=== PATIENT | female | born 1955 | race Caucasian/White ===

== ENCOUNTER → 2021-03-15 | Outpatient (CLI) | payer MEDICARE ==
--- NOTE | 2021-03-15 09:13 | CT ---
EXAMINATION TYPE: CT brain wo con DATE OF EXAM: 03/15/2021 COMPARISON: None HISTORY: 65-year-old female Headache, weakness and abnormal gait TECHNIQUE: Examination was done in axial plane without intravenous contrast. Coronal and sagittal r econstructions performed. CT DLP: 1323.9 mGycm Automated exposure control for dose reduction was used. FINDINGS: There is no evidence of acute intracranial hemorrhage, acute ischemic changes, mass, mass-effect, or extra-axial fluid collection. There is no effacement of cerebral sulci or basal subarachnoid cister ns. There is no hydrocephalus. There is no midline shift. López-white matter distinction is preserv ed. Mild atherosclerotic calcifications within the carotid siphons. Mild bifrontal cerebral cortical volu me loss. Paranasal sinuses and mastoid air cells well pneumatized. Rightward nasal septal deviation. Orbits an d globes are intact. IMPRESSION: Mild bifrontal cerebral atrophy. No acute intracranial abnormality seen.
== END | disposition home or self-care (01) ==
LOC: RADCTMAIN 06:32
PROVIDERS: ATTEND Internal Medicine
DX: G31.9 Degenerative disease of nervous system, unspecified (principal)
CPT/HCPCS: 70450

== ENCOUNTER → 2023-07-25 | Outpatient (CLI) | payer MEDICARE ==
--- NOTE | 2023-07-26 18:51 | MM ---
Reason for Exam: Screening (asymptomatic). Last mammogram was performed 5 year(s) and 1 month(s) ago. Patient History: Menarche at age 10. First Full-Term at age 27. Postmenopausal. Estrogen for 8 years from age 48 until age 56. Progesterone for 8 years from age 48 until age 56. 1991, Bilateral Implants. Risk Values: Analia 5 year model risk: 2.1%. NCI Lifetime model risk: 6.7%. Prior Study Comparison: 03/07/2011 Bilateral Diagnostic Mammogram, [facility]. 01/17/2015 Bilateral Diagnostic Mammogram, [facility]. 07/10/2018 Bilateral Screening Mammogram, [facility]. Tissue Density: There are scattered fibroglandular densities. Findings: Analyzed By CAD. There are calcified prepectoral implants on both sides. Chronic bilateral nodularity. There is no suspicious group of microcalcifications or new suspicious mass in either breast. Overall Assessment: Benign, BI-RAD 2 Management: Screening Mammogram of both breasts in 1 year. . Patient should continue monthly self-breast exams. A clinical breast exam by your physician is recommended on an annual basis. This exam should not preclude additional follow-up of suspicious palpable abnormalities. Note on Analia scores and lifetime risk: 1. A Analia score greater than 3% is considered moderate risk. If this is the case, consider specialist referral to assess eligibility for a risk reducing agent. 2. If overall lifetime risk for the development of breast cancer is 20% or higher, the patient may qualify for future screening with alternating mammogram and breast MRI. Electronically signed and approved by: Kwame Garcia M.D. Radiologist
== END | disposition home or self-care (01) ==
LOC: RADMAMWWP 12:37
PROVIDERS: ATTEND Internal Medicine Geriatric Medicine
DX: Z12.31 Encounter for screening mammogram for malignant neoplasm of breast (principal); Z78.0 Asymptomatic menopausal state
CPT/HCPCS: 77063; 77067

== ENCOUNTER → 2025-01-29 | Outpatient (CLI) | payer MEDICARE ==
--- NOTE | 2025-01-29 16:18 | BD ---
EXAMINATION TYPE: Axial Bone Density DATE OF EXAM: 01/29/2025 CLINICAL HISTORY: 69 years old Female. ICD-10 CODE: M81.0 MENOPAUSAL , Additional History: Height: 60.58 Weight: 157.6 FRAX RISK QUESTIONS: Alcohol (3 or more units per day): no Family History (Parent hip fracture): no Glucocorticoids (More than 3mos): no (Ex: prednisone, prednisolone, methylprednisolone, dexamethasone, and hydrocortisone). History of Fracture in Adulthood: ankle Secondary Osteoporosis: 1. Type 1 Diabetes: no 2. Hyperthyroidism: no 3. Menopause before 45: no 4. Malnutrition: no 5. Chronic liver disease: no Rheumatoid Arthritis: no Current Tobacco Use: no RISK FACTORS HISTORY OF: Hip Fracture (Right/Left): no Spine Fracture: no History of Wrist Fracture: lt When: teenager Surgery to Spine/Hip(right/left)/Wrist (right/left): no MEDICATIONS: Thyroid Medications: Synthroid How Long: past 30 years Osteoporosis Medications: no EXAM MEASUREMENTS: Bone mineral densitometry was performed using the [employer] System. Bone mineral density as measured about the Lumbar spine is: ----- L1-L4(G/cm2): 0.845 T Score Values are as follows: ----- L1: -3.0 ----- L2: -3.1 ----- L3: -2.2 ----- L4: -2.9 ----- L1-L4: -2.8 Z Score Values are as follows: ----- L1: -1.6 ----- L2: -1.6 ----- L3: -0.8 ----- L4: -1.5 ----- L1-L4: -1.3 Bone mineral density has: decreased -1.6 % since study of: 07/10/2018 Bone mineral density about the R hip (g/cm2): 0.711 Bone mineral density about the L hip (g/cm2): 0.661 T Score values are as follows: -----R Neck: -2.6 -----L Neck: -3.1 -----R Total: -2.4 -----L Total: -2.8 Z Score values are as follows: -----R Neck: -1.0 -----L Neck: -1.6 -----R Total: -1.1 -----L Total: -1.5 Bone mineral density has: decreased -7.4 % since study of: 07/10/2018 FRAX%s: The graph provided illustrates a 28.7% chance for a major osteoporotic fx and a 9.7% chance f or the hips probability for fx in 10 years time. IMPRESSION: Osteoporosis (T Score less than -2.5). There is increased fracture risk and therapy is usually indicated based on age. Re-Screen 1-2 years. NOTE: T-SCORE=SD OF THE YOUNG ADULT MEAN. [facility], , 01/29/2025 4:16 PM
--- NOTE | 2025-01-29 18:46 | MM ---
Reason for Exam: Screening (asymptomatic). Last mammogram was performed 1 year(s) and 6 month(s) ago. Patient History: Menarche at age 10. First Full-Term at age 27. Postmenopausal. Estrogen for 8 years from age 48 until age 56. Progesterone for 8 years from age 48 until age 56. 1991, Bilateral Implants. Risk Values: Analia 5 year model risk: 2.1%. NCI Lifetime model risk: 6.4%. Prior Study Comparison: 01/17/2015 Bilateral Diagnostic Mammogram, [facility]. 07/10/2018 Bilateral Screening Mammogram, [facility]. 07/25/2023 Bilateral MG 3D screen mammo imp/cad., [facility]. Tissue Density: There are scattered areas of fibroglandular density. Findings: Analyzed By CAD. Bilateral prepectoral silicone implants. There is no suspicious group of microcalcifications or new suspicious mass in either breast. Overall Assessment: Negative, BI-RAD 1 Management: Screening Mammogram of both breasts in 1 year. Patient should continue monthly self-breast exams. A clinical breast exam by your physician is recommended on an annual basis. This exam should not preclude additional follow-up of suspicious palpable abnormalities. Note on Analia scores and lifetime risk: 1. A Analia score greater than 3% is considered moderate risk. If this is the case, consider specialist referral to assess eligibility for a risk reducing agent. 2. If overall lifetime risk for the development of breast cancer is 20% or higher, the patient may qualify for future screening with alternating mammogram and breast MRI. [facility], , 01/29/2025 6:44 PM. Electronically signed and approved by: Kwame Garcia M.D. Radiologist
== END | disposition home or self-care (01) ==
LOC: RADMAMWWP 15:26
PROVIDERS: ATTEND Internal Medicine Geriatric Medicine
DX: Z12.31 Encounter for screening mammogram for malignant neoplasm of breast (principal); M81.0 Age-related osteoporosis without current pathological fracture; R92.323 Mammographic fibroglandular density, bilateral breasts; Z78.0 Asymptomatic menopausal state; Z98.82 Breast implant status
CPT/HCPCS: 77063; 77067; 77080